=== PATIENT | female | born 1950 | race Caucasian/White ===

== ENCOUNTER → 2016-12-23 | Outpatient (CLI) | payer MEDICARE ==
[~2016-12-23] MED LIST: ACYCLOVIR400 MG PO; ANTIVERT/2525 MG PO; ANTIVERT25 MG PO; APRESOLINE25 MG PO; ASPI-COR81 M1 PO; ASPIR 8181 MG PO; CLINDAMYCIN HC300 MG PO; COUMADIN7.5 M1 PO; Coumadin2 MG PO; Coumadin5 MG PO; HYDROCODONE BIT1 T11 PO; LEVAQUIN750 MG PO; LIPITOR10 MG PO; MEDROL DOSEPAK4 MG PO; NEURONTIN300 MG PO; NILSTAT,MY500000 UN/ PO; PLAVIX75 MG PO; SEPTRA DS 800 M1 TAB PO; VICODIN 5/500 505 MG PO; ZESTORETIC 12.51 TAB PO; ZOFRAN ODT4 MG PO; Zofran4 MG PO; [UNRECOGNIZED DRUG - OTHER] OPH
[2016-12-23 12:56] LABS: INTERNATIONAL NORM RATIO 1.9 (2.0-3.5); PROTHROMBIN TIME 20.9 SECONDS (9.0-12.4)
== END | disposition home or self-care (01) ==
LOC: LAB 11:40
DX: Z79.01 Long term (current) use of anticoagulants (principal)

== ENCOUNTER → 2017-02-17 | Outpatient (CLI) | payer MEDICARE ==
[2017-02-17 14:09] LABS: INTERNATIONAL NORM RATIO 2.7 (2.0-3.5); PROTHROMBIN TIME 30.4 SECONDS (9.0-12.4)
== END | disposition home or self-care (01) ==
LOC: LAB 13:03
DX: Z79.01 Long term (current) use of anticoagulants (principal)

== ENCOUNTER → 2017-03-17 | Outpatient (CLI) | payer MEDICARE ==
[2017-03-17 13:27] LABS: INTERNATIONAL NORM RATIO 2.5 (2.0-3.5); PROTHROMBIN TIME 28.4 SECONDS (9.0-12.4)
== END | disposition home or self-care (01) ==
LOC: LAB 12:00
DX: Z79.01 Long term (current) use of anticoagulants (principal)

== ENCOUNTER 2017-04-11 12:57 | Emergency (ER) | payer MEDICARE ==
[~2017-04-11] VITALS: Ht 162.5 cm; Wt 68.0 kg
[2017-04-11 13:02] VITALS: BP 173/81
[2017-04-11 13:37] LABS: BASO # 0.1 10*3/uL (0.0-0.1); BASO % 0.5 % (0.0-1.0); EOS # 0.2 10*3/uL (0.0-0.4); EOS % 1.8 % (1.0-4.0); HEMATOCRIT 43.7 % (37.0-47.0); HEMOGLOBIN 14.1 g/dl (12.0-16.0); LYMPH # 1.5 10*3/uL (1.3-4.4); LYMPH % 13.2 % (27.0-41.0); MEAN CELL VOLUME 80.2 fl (81.0-99.0); MEAN CORPUSCULAR HGB 25.9 pg (27.0-31.0); MEAN CORPUSCULAR HGB CONC 32.3 g/dl (33.0-37.0); MEAN PLATELET VOLUME 11.3 fl (9.6-12.3); MONO # 0.6 10*3/uL (0.1-1.0); MONO % 5.7 % (3.0-9.0); NEUT # 8.8 10*3/uL (2.3-7.9); NEUT % 78.5 % (47.0-73.0); PLATELET COUNT AUTOMATED 249 10*3/uL (130-400); RED BLOOD COUNT 5.45 10*6/uL (4.10-5.10); RED CELL DISTRI WIDTH 16.8 % (0-14.5); WHITE BLOOD COUNT 11.2 10*3/uL (4.8-10.8)
[2017-04-11 13:45] LABS: PROTHROMBIN TIME 22.1 SECONDS (9.0-12.4)
[2017-04-11 13:54] LABS: ALBUMIN 3.5 gm/dl (3.1-4.5); ALKALINE PHOSPHATASE 108 U/L (45-117); BILIRUBIN, TOTAL 0.6 mg/dl (0.2-1.0); BUN 12 mg/dl (7-24); C-REACTIVE PROTEIN 2.67 MG/DL (0-0.3); CARBON DIOXIDE 28 mmol/L (21-32); CHLORIDE 108 mmol/L (98-107); EST GLOM FILT AFRICAN AMERICAN > 60 ml/min; GLUCOSE 103 mg/dL (65-99); MAGNESIUM 2.2 mg/dL (1.5-2.1); SGOT/AST 19 IU/L (3-35); SGPT/ALT 20 U/L (12-78); SODIUM 144 mmol/L (136-145)
[2017-04-11] MEDS ORDERED: CLINDAMYCIN150 MG PO (14:15)
[2017-04-11] MEDS ORDERED: HYDROCODONE BIT1 T11 PO (14:15)
== END 2017-04-11 15:06 | disposition home or self-care (01) ==
LOC: ED 12:57
PROVIDERS: Emergency Medicine
DX: L03.211 Cellulitis of face (principal); Z79.02 Long term (current) use of antithrombotics/antiplatelets; Z79.82 Long term (current) use of aspirin; Z79.899 Other long term (current) drug therapy; Z88.0 Allergy status to penicillin; Z88.1 Allergy status to other antibiotic agents; Z88.6 Allergy status to analgesic agent

== ENCOUNTER → 2017-06-09 | Outpatient (CLI) | payer MEDICARE ==
[~2017-06-09] MED LIST changes: +CLINDAMYCIN150 MG PO
[2017-06-09 15:17] LABS: INTERNATIONAL NORM RATIO 2.3 (2.0-3.5); PROTHROMBIN TIME 25.5 SECONDS (9.0-12.4)
== END | disposition home or self-care (01) ==
LOC: LAB 14:12
DX: Z79.01 Long term (current) use of anticoagulants (principal)